=== PATIENT | female | born 1985 | race Caucasian/White ===

== ENCOUNTER 2019-06-08 11:05 | Inpatient (IN) | payer SELFPAY ==
[2014-06-28 07:22] VITALS: BMI 20.6
[2019-06-08 12:49] VITALS: BMI 25.4
--- NOTE | 2019-06-08 13:17 | HP.PCM_ITS ---
- Problem List (1) History of placenta abruption Status: Acute (2) History of recurrent miscarriages Status: Acute (3) History of stillbirth Status: Acute (4) IUGR (intrauterine growth restriction) Status: Acute History Date of Admission: 06/02/14 Final SAMMI: 06/27/19 Gestational age: 37 Weeks and 2 Days History of this : This is a 33 year-old, at 37 weeks gestational age presents for induction of labor secondary to IUGR. Patient is received care by a synthetic chemist in [facility] and has been followed with growth ultrasounds throughout the due to her complicated history of previous 22-week PPROM abruption, stillbirth, and recurrent miscarriage. Most recent ultrasound was diagnosed with IUGR in the 10th percentile. Based on her complex history is recommended to deliver at 37 weeks. Allergies No Known Allergies Allergy (Verified 06/02/14 05:35) Home Medications: Home Medications Calcium 1 tab PO DAILY 06/08/19 Ferrous Gluconate 325 mg PO TID 06/08/19 [place]-3 6 tab PO DAILY 06/08/19 Vits [Prenatabs FA ] 1 tab PO TID 06/08/19 Vitamin D3 1 tab PO DAILY 06/08/19 Vitamin E 1 tab PO DAILY 06/08/19 Smoking Status: Never smoker Alcohol: None Number of Fetus(es): 1 NST - FHR Rate Baby A Baseline: 130 Variability:: Moderate Accelerations:: 15 x 15 Decelerations:: None NST Reactive:: Yes FHR Category:: Category I Uterine Activity:: no regular History Past Pregnancies: Past Pregnancies 22-week PPROM and abruption and delivery Stillbirth 2 miscarriages Term vaginal delivery, treated with progesterone injections during . Labs: Mom's Microbiology 06/08/19 Unknown Genital vaginal Group B Streptococcus Culture - Pending Mom's Problem List Problem Status Onset Code IUGR (intrauterine growth restriction) Acute History of placenta abruption Acute Z87.59 History of stillbirth Acute Z87.59 History of recurrent miscarriages Acute N96 Mom's Labs & Results 06/08/19 06/08/19 06/08/19 13:40 13:40 13:40 WBC 9.9 RBC 3.74 L Hgb 12.3 Hct 36.1 L MCV 96.5 MCH 32.9 H MCHC 34.1 RDW Std Deviation 47.1 H RDW Coeff of Gladis 13.2 Plt Count 221 MPV 11.6 Immature Gran % (Auto) 0.600 Neut % (Auto) 76.2 H Lymph % (Auto) 15.9 L [place] % (Auto) 5.9 Eos % (Auto) 1.2 Baso % (Auto) 0.2 Absolute Neuts (auto) 7.5 Absolute Lymphs (auto) 1.57 Nucleated RBC % 0 Urine Color Urine Clarity Urine pH Ur Specific [place] Urine Protein Urine Glucose (UA) Urine Ketones Urine Occult Blood Urine Nitrite Urine Bilirubin Urine Urobilinogen Ur Leukocyte Esterase Urine RBC Urine WBC Ur Squamous Epith Cells Urine Bacteria Urine Mucus Urine Opiates Screen Urine Methadone Screen Ur Barbiturates Screen Ur Phencyclidine Scrn Ur Amphetamines Screen U Methamphetamin-MDMA U Benzodiazepines Scrn Urine Cocaine Screen U Cannabinoids Screen Ur Drug Screen Comment RPR Pending Chlam trachomat DNA PCR Hep Bs Antigen Hepatitis C Antibody HIV 1&2 Antibody N.gonorrhoeae DNA (PCR) Rubella IgG Antibody 57.6 Group B Strep DNA Specimen Comment Blood Type Antibody Screen 06/08/19 06/08/19 06/08/19 13:40 13:40 14:00 WBC RBC Hgb Hct MCV MCH MCHC RDW Std Deviation RDW Coeff of Gladis Plt Count MPV Immature Gran % (Auto) Neut % (Auto) Lymph % (Auto) [place] % (Auto) Eos % (Auto) Baso % (Auto) Absolute Neuts (auto) Absolute Lymphs (auto) Nucleated RBC % Urine Color Yellow Urine Clarity Sl. Cloudy Urine pH 7.0 Ur Specific [place] 1.010 Urine Protein Negative Urine Glucose (UA) Normal Urine Ketones Negative Urine Occult Blood Negative Urine Nitrite Negative Urine Bilirubin Negative Urine Urobilinogen Normal Ur Leukocyte Esterase 25 H Urine RBC 0 SEEN Urine WBC 0-5 SEEN Ur Squamous Epith Cells 0-5 SEEN Urine Bacteria 1+ Urine Mucus 0 SEEN Urine Opiates Screen Urine Methadone Screen Ur Barbiturates Screen Ur Phencyclidine Scrn Ur Amphetamines Screen U Methamphetamin-MDMA U Benzodiazepines Scrn Urine Cocaine Screen U Cannabinoids Screen Ur Drug Screen Comment RPR Chlam trachomat DNA PCR Hep Bs Antigen Non-Reactive Hepatitis C Antibody Non-Reactive HIV 1&2 Antibody Non-Reactive N.gonorrhoeae DNA (PCR) Rubella IgG Antibody Group B Strep DNA Specimen Comment Blood Type O POSITIVE Antibody Screen NEGATIVE 06/08/19 06/08/19 14:00 14:00 WBC RBC Hgb Hct MCV MCH MCHC RDW Std Deviation RDW Coeff of Gladis Plt Count MPV Immature Gran % (Auto) Neut % (Auto) Lymph % (Auto) [place] % (Auto) Eos % (Auto) Baso % (Auto) Absolute Neuts (auto) Absolute Lymphs (auto) Nucleated RBC % Urine Color Urine Clarity Urine pH Ur Specific [place] Urine Protein Urine Glucose (UA) Urine Ketones Urine Occult Blood Urine Nitrite Urine Bilirubin Urine Urobilinogen Ur Leukocyte Esterase Urine RBC Urine WBC Ur Squamous Epith Cells Urine Bacteria Urine Mucus Urine Opiates Screen Cancelled Urine Methadone Screen Cancelled Ur Barbiturates Screen Cancelled Ur Phencyclidine Scrn Cancelled Ur Amphetamines Screen Cancelled U Methamphetamin-MDMA Cancelled U Benzodiazepines Scrn Cancelled Urine Cocaine Screen Cancelled U Cannabinoids Screen Cancelled Ur Drug Screen Comment Cancelled RPR Chlam trachomat DNA PCR Negative Hep Bs Antigen Hepatitis C Antibody HIV 1&2 Antibody N.gonorrhoeae DNA (PCR) Negative Rubella IgG Antibody Group B Strep DNA Negative Specimen Comment Not Reportable Blood Type Antibody Screen Course Did the patient receive Yes care? Labs Blood Type: O RH: POSITIVE Rubella status Immune HbSAg Negative Date Done: 06/08/19 Chlamydia Negative Gonorrhea Negative HIV/AIDS Non-Reactive Group B Strep: Negative Other Lab Procedures/Results/ NPC labs to be drawn with admission Comments: Current Obstetrical History Gestational Diabetes No Incompetent Cervix No Infertility No IUGR Yes: confirmed IUGR Macrosomia No Hypertension/Pre-eclampsia No Placenta Previa/Abruption No: placenta chairez PTL/PROM No Uterine anomaly No Oligohydramnios No Polyhydramnios No Multiple gestation No Past Medical History Asthma No Diabetes No Hypertension No Heart disease No Mitral valve prolapse No Neurologic/Seizure disorder/ No Migraines Kidney disease No Liver disease No Varicosities No Clotting disorders/Hx of DVT No Other medical diseases No Psychiatric disorders Yes: anxiety Major trauma No Abnormal PAP smear No Sleep apnea No Mammogram in the last 2 years No Social History Marital Status: Alleged father Keshawn Hx Smoking No Smoking Status Never smoker How long have you used pt denies substances (years)? Expected Delivery Method: Spontaneous Vaginal Review of Systems Constitutional: Denies: Fever, Malaise Eyes: Denies: Blurred vision, Vision Change HEENT: Denies: Head Aches, Visual Changes Cardiovascular: Denies: Chest Pain, Palpitations Respiratory: Denies: Cough, Shortness of Breath, Wheezing Gastrointestinal: Denies: Abdominal Pain, Diarrhea, Nausea, Vomiting Genitourinary: Denies: Dysuria, Hematuria Musculoskeletal: Denies: Joint Pain, Muscle pain Skin: Denies: Lesions, Rash Neurological: Denies: Blurred vision, Focal weakness, Headaches Psychiatric: Denies: Anxiety, Depression Endocrine: Denies: Heat/ Cold Intolerance Hematologic/ Lymphatic: Denies: Easy Bruising, Easy Bleeding Physical Exam General: Alert, Cooperative, No apparent distress HEENT: Atraumatic, Normocephalic. Negative for: Thyromegaly, Lymphadenopathy Cardiovascular: Regular rate Lungs: Normal air movement Abdomen: Soft, Non Tender, Gravid Neurological: Deep Tendon Reflexes 2+/4 and Symmetrical, Neuro grossly intact. Negative for: Clonus RESERVATIONS AND TICKETING AGENT: Normal external genitalia. Negative for: Vulvar lesions Estimated gestational size: Appropriate for gestational size Presentation: Cephalic Assessment/Plan All Active Problems IUGR (intrauterine growth restriction) (Acute) History of placenta abruption (Acute) History of stillbirth (Acute) History of recurrent miscarriages (Acute) This is a 33 year-old, , at 37 weeks gestational age presents for IOL secondary to IUGR. Patient presents IOL, plan management for , pitocin/AROM Pain management: minimal intervention GBS neg Management of any complications: none I have reviewed the [facility] and made any clinically relevant updates.
[2019-06-08] MEDS: Lactated Ringers 1,000 ML 50 ML IV (13:40)
[2019-06-08 14:09] LABS: Absolute Lymphocyte Count 1.57 X10^3/uL (0.83-4.51); Absolute Neutrophil Count 7.5 X10^3/uL (2.0-7.7); Basophil# 0.02 X10^3/uL; Basophil% 0.2 % (0-1); Eosinophil# 0.12 X10^3/uL; Eosinophils% 1.2 % (0-5); Hematocrit 36.1 % (37-47); Hemoglobin 12.3 g/dL (12.0-15.0); Lymphocyte # 1.57 X10^3/ul (4.0); Lymphocyte % 15.9 % (19-41); Mean Corp Hgb Conc 34.1 g/dL (32-36); Mean Corpuscular Hgb 32.9 pg (27.0-32.0); Mean Corpuscular Volume 96.5 fL (81-99); Mean Platelet Vol. 11.6 fl (6.2-12.0); Monocyte# 0.58 X10^3/uL; Monocyte% 5.9 % (0-10); NRBC Flagged by Analyzer 0 % (0-5); Neutrophil # 7.53 X10^3/uL (2.7-7.7); Neutrophil % 76.2 % (47-70); Platelet Count 221 K/mm3 (150-450); RBC Distribution Width CV 13.2 % (11.6-14.6); RBC Distribution Width SD 47.1 fl (35.1-43.9); Red Blood Count 3.74 M/mm3 (4.2-5.4); White Blood Count 9.9 K/mm3 (4.4-11.0)
[2019-06-08] MEDS: 0.9% Normal Saline Single 100 ML IV.SOLN. IY (14:10)
[2019-06-08] MEDS: Oxytocin 30 units/NS 500 ml 30 UNITS/500 ML IV.SOLN IV (14:14)
[2019-06-08 14:34] LABS: Mucous, Urine 0 SEEN /hpf (<or=2+); Red Blood Cells-Urine 0 SEEN /hpf (0-5)
[2019-06-08 14:42] LABS: Color, Urine Yellow (Yellow); Glucose, Dipstick Normal (Normal); Ketone-Dipstick Negative (Negative); Leukocyte Esterase-Dipstick 25 /ul (Negative); Nitrite-Dipstick Negative (Negative); Occult Blood-Urine Negative /ul (Negative); Protein-Dipstick Negative (Negative); Urine Bilirubin Dipstick Negative (Negative); Urine Clarity Sl. Cloudy (Clear); Urine Urobilinogen Normal (Normal)
[2019-06-08 14:47] LABS: Squamous Epithelial Cells - UA 0-5 SEEN /hpf (5-10); White Blood Cells 0-5 SEEN /hpf (0-5)
[2019-06-08 14:49] LABS: Bacteria 1+ /hpf (None Seen)
[2019-06-08 15:01] LABS: Rubella IgG 57.6 IU/mL
[2019-06-08 15:09] LABS: Group B Strep DNA By PCR Negative (Negative); Internal Control PASS; Probe Check PASS; Specimen Processing Control PASS
[2019-06-08 15:37] LABS: HIV - WCH Non-Reactive (Nonreactive); Hepatitis B Surface Antigen Non-Reactive (Nonreactive); Hepatitis C Antibody Non-Reactive (Nonreactive)
[2019-06-08 16:18] LABS: Chlamydia Trachomatis by PCR Negative (Negative); Neisserai gonorrhoeae by PCR Negative (Negative); Probe Check PASS; Sample Adequacy Control PASS; Specimen Processing Control PASS
[2019-06-08] MEDS: fentaNYL 100 MCG/2 ML Ampul IV (19:40)
[2019-06-08] MEDS: Oxytocin 30 units/NS 500 ml 30 UNITS/500 ML IV.SOLN 334 UNITS IV (22:16)
--- NOTE | 2019-06-08 22:48 | PCM.OPRPT ---
Problem List (1) IUGR (intrauterine growth restriction) Status: Acute (2) History of placenta abruption Status: Acute (3) History of stillbirth Status: Acute (4) History of recurrent miscarriages Status: Acute Report of Operation Date of Procedure: 06/08/19 Pre-Operative Diagnosis: IOL IUGR Post-Operative Diagnosis: same Surgery/Procedure Performed:: Vaginal Delivery Maternal Presentation: Medically Indicated Induction @ 37w1d presents for IOL Method of Induction: Pitocin Amniotic Membrane Rupture Type: Artificial Amniotic Fluid Description: Clear Final SAMMI: 06/27/19 Gestational age: 37 Weeks and 2 Days Date of Procedure: 06/08/19 Pre-Operative Diagnosis: iol iugr Post-Operative Diagnosis: same Surgery/ Procedure Performed: Spontaneous Vaginal Delivery Type of Anesthesia: None Description of Procedure: Patient began pushing and delivered the head in the JIM presentation. The head was delivered atraumatically. The anterior and posterior shoulders delivered without complication followed by the rest of the infant and the was placed on the maternal abdomen. Delayed cord clamping was employed for approximately 60 seconds. Cord was clamped and cut and gentle traction was applied to the cord and the placenta delivered spontaneously immediately following it was noted to be intact with three-vessel cord. The perineum and vagina were inspected and noted to have no laceration. EBL was 300 cc. Patient and infant tolerated delivery well. Presentation: JIM Placental Delivery Description: Spontaneous Placenta Disposition: [facility] Cord Vessel Description: 3 Vessels Cord Entanglement: None Estimated Blood Loss: 300 Infant A gender: Female Episiotomy Description: None Laceration: None Medications given after delivery: IV Pitocin Complications: None Multi Select Codes - Urinary/Genital Urinary/Genital CPT Codes: 50834 Vaginal Delivery+ Care([facility])
[2019-06-08] MEDS: Methylergonovine 0.2 MG/ML Ampul IM (23:04)
--- NOTE | 2019-06-09 01:11 | NURSING ---
this RN received report. this RN to assume care of pt at this time.
[2019-06-09] MEDS: 0.9% Saline Lock 10 ML Syringe IV (01:12)
[2019-06-09 01:13] VITALS: BP 112/71; PULSE 83; RESP 16; TEMP 36.8
[2019-06-09 04:26] VITALS: BP 112/69; PULSE 73; RESP 16; TEMP 37.7
--- NOTE | 2019-06-09 06:59 | DCINST_ITS ---
Discharge Diet: No Restrictions Discharge Activity: Return to Normal Activity, May not drive while taking narcotic pain medications., May Shower May resume sexual activity in: 4-6 weeks Call your doctor if your incision/area has: Continuous Slow Oozing, Sudden Increased Bleeding, Increased Pain/ Swelling, Increased Redness, Foul Smelling Discharge Additional Instructions: If you experience any of the following, contact your healthcare provider. * Bleeding that soaks a pad every hour for 2 hours * Fever 100.4 or higher * Unrelieved incision or abdominal pain * Swelling, redness, discharge or bleeding from your incision or episiotomy site * Your incision begins to separate * Problems urinating (including inability to urinate or burning while urinating). * Visual changes * Severe headache * Flu-like symptoms * Pain or redness in one of both of your breasts * Pain, warmth, tenderness or swelling in your legs, especially the calf area * Frequent nausea and vomiting * Symptoms of depression or anxiety If you experience any of the following, call 911 or go to the nearest Emergency Room. * Chest pain * Problems breathing * Seizure activity * Partial or complete paralysis of a body part, slurred speech, weakness or drooping of the face, or a sudden inability to walk or hold your balance Allergies/Adverse Reactions: Allergies No Known Allergies Allergy (Verified 06/02/14 05:35) Medications to take at Discharge Calcium 1 tab PO DAILY 06/08/19 Ferrous Gluconate 325 mg PO TID 06/08/19 [place]-3 6 tab PO DAILY 06/08/19 Vits [Prenatabs FA ] 1 tab PO TID 06/08/19 Vitamin D3 1 tab PO DAILY 06/08/19 Vitamin E 1 tab PO DAILY 06/08/19 Please Follow Up With: Faina Beckwith MD - [phone] When: Call to make an appointment with your doctor in 6 weeks. If you had elevated Blood pressure or 4th degree laceration you will need to be seen in 2 weeks. Primary Care Physician: Care Physician,No Primary [Primary Care Provider] - Test Results: Test results from this visit will be discussed in further detail at your follow- up appointment, if applicable.
--- NOTE | 2019-06-09 08:47 | PN.OBGYN_ITS ---
Patient Problems: Active and Suspected Problems IUGR (intrauterine growth restriction) (Acute) History of placenta abruption (Acute) History of stillbirth (Acute) History of recurrent miscarriages (Acute) Subjective: Doing well, no complaints.Pain controlled. Denies CP, SOB, N,V. Ambulating well, tolerating po. Lochia moderate, going well. - Physical Exam Vitals/I&O's: Vital Signs Temp Pulse Resp BP 99.8 F H 73 16 112/69 06/09/19 04:26 06/09/19 04:26 06/09/19 04:26 06/09/19 04:26 Oxygen Delivery Method Room Air Weight: 139 lb 6.4 oz Body Mass Index (BMI) 25.4 Intake and Output for Last 24 Hours 06/07/19 06/08/19 06/09/19 23:59 23:59 23:59 Intake Total 898.73 / 898.73 327.43 / 327.43 Output Total 400 / 400 1100 / 1100 Balance 498.73 / 498.73 -772.57 / -772.57 General: Oriented x3 Abdomen: Soft, Non Tender, Non-Distended, - - FF below U Laboratory Results 06/08/19 13:40: WBC 9.9, RBC 3.74 L, Hgb 12.3, Hct 36.1 L, MCV 96.5, MCH 32.9 H, MCHC 34.1, RDW Std Deviation 47.1 H, RDW Coeff of Gladis 13.2, Plt Count 221, MPV 11.6, Immature Gran % (Auto) 0.600, Neut % (Auto) 76.2 H, Lymph % (Auto) 15.9 L, [place] % (Auto) 5.9, Eos % (Auto) 1.2, Baso % (Auto) 0.2, Absolute Neuts (auto) 7.5, Absolute Lymphs (auto) 1.57, Nucleated RBC % 0 06/08/19 13:40: Rubella IgG Antibody 57.6 06/08/19 13:40: RPR Pending 06/08/19 13:40: Blood Type O POSITIVE, Antibody Screen NEGATIVE 06/08/19 13:40: Hep Bs Antigen Non-Reactive, Hepatitis C Antibody Non-Reactive, HIV 1&2 Antibody Non-Reactive 06/08/19 14:00: Urine Color Yellow, Urine Clarity Sl. Cloudy, Urine pH 7.0, Ur Specific [place] 1.010, Urine Protein Negative, Urine Glucose (UA) Normal, Urine Ketones Negative, Urine Occult Blood Negative, Urine Nitrite Negative, Urine Bilirubin Negative, Urine Urobilinogen Normal, Ur Leukocyte Esterase 25 H, Urine RBC 0 SEEN, Urine WBC 0-5 SEEN, Ur Squamous Epith Cells 0-5 SEEN, Urine Bacteria 1+, Urine Mucus 0 SEEN 06/08/19 14:00: Chlam trachomat DNA PCR Negative, N.gonorrhoeae DNA (PCR) Negative, Group B Strep DNA Negative, Specimen Comment Not Reportable 06/08/19 14:00: Urine Opiates Screen Cancelled, Urine Methadone Screen Cancelled, Ur Barbiturates Screen Cancelled, Ur Phencyclidine Scrn Cancelled, Ur Amphetamines Screen Cancelled, U Methamphetamin-MDMA Cancelled, U Benzodiazepines Scrn Cancelled, Urine Cocaine Screen Cancelled, U Cannabinoids Screen Cancelled, Ur Drug Screen Comment Cancelled Current Medications Acetaminophen (Tylenol) 1,000 mg PO Q8H PRN PRN PRN Reason: Pain Score 1-3/10 Bisacodyl (Dulcolax) 10 mg RECTAL UD PRN PRN Reason: If no BM Dibucaine (Dibucaine) 1 applic TOPICAL TID PRN PRN; Protocol PRN Reason: Discomfort Hydrocortisone (Hytone) 1 applic TOPICAL TID PRN PRN; Protocol PRN Reason: Discomfort Methylergonovine Maleate (Methergine) 0.2 mg IM X1 PRN PRN Reason: Excess bleeding/uterine atony Last Admin: 06/08/19 23:04 Dose: 0.2 mg Documented by: Naproxen (Naprosyn) 500 mg PO Q8H PRN PRN PRN Reason: Pain Score 1-3/10 Ondansetron HCl (Zofran) 4 mg IV Q4H PRN PRN PRN Reason: Nausea Oxycodone HCl (Oxyir) 5 - 10 mg PO Q4H PRN PRN PRN Reason: Pain Score 4-10/10 Senna/Docusate Sodium (Senokot-S, Marjorie-Colace) 1 - 2 tablet PO DAILY PRN PRN PRN Reason: Constipation Simethicone (Mylicon) 80 mg PO PCHS PRN PRN Reason: Indigestion/Stomach pain Sodium Chloride () 5 - 15 ml IV UD PRN PRN Reason: SALINE FLUSH Last Admin: 06/09/19 01:12 Dose: 10 ml Documented by: Medical Necessity - Tobacco Use Smoking Status: Never smoker Assessment/Plan All Active Problems IUGR (intrauterine growth restriction) (Acute) History of placenta abruption (Acute) History of stillbirth (Acute) History of recurrent miscarriages (Acute) s/p PPD # 1 1. routine post delivery care 2. breast feeding- support given 3. rh positive 4. rubella immune
[2019-06-09 09:16] VITALS: BP 106/62; PULSE 85; RESP 16; TEMP 36.8
[2019-06-09 13:22] VITALS: BP 101/58; PULSE 77; RESP 16; TEMP 36.8
[2019-06-09 15:45] VITALS: BP 100/58; PULSE 74; RESP 16; TEMP 36.6
[2019-06-09 20:12] VITALS: BP 109/71; PULSE 87; RESP 16; TEMP 36.6; O2SAT 98
[2019-06-10 02:00] VITALS: BP 105/55; PULSE 70; RESP 16; TEMP 36.7
[2019-06-10] MEDS: Senna/Docusate Sodium 1 Tablet PO (05:04)
[2019-06-10 08:30] VITALS: BP 103/67; PULSE 64; RESP 16; TEMP 36.4
--- NOTE | 2019-06-10 09:35 | PCM.PN.OB ---
Patient Problems: Active and Suspected Problems IUGR (intrauterine growth restriction) (Acute) History of placenta abruption (Acute) History of stillbirth (Acute) History of recurrent miscarriages (Acute) Subjective: Doing well, no complaints.Pain controlled. Denies CP, SOB, N,V. Ambulating well, tolerating po. Lochia moderate, going well. - Physical Exam Vitals/I&O's: Vital Signs Temp Pulse Resp BP Pulse Ox 97.6 F L 64 16 103/67 98 06/10/19 08:30 06/10/19 08:30 06/10/19 08:30 06/10/19 08:30 06/09/19 20:12 Oxygen Delivery Method Room Air Weight: 139 lb 6.4 oz Body Mass Index (BMI) 25.4 Intake and Output for Last 24 Hours 06/08/19 06/09/19 06/10/19 23:59 23:59 23:59 Intake Total 898.73 / 898.73 327.43 / 327.43 Output Total 400 / 400 1100 / 1100 Balance 498.73 / 498.73 -772.57 / -772.57 General: Alert, Oriented x3 Abdomen: Soft, Non Tender - FF below U Current Medications Acetaminophen (Tylenol) 1,000 mg PO Q8H PRN PRN PRN Reason: Pain Score 1-3/10 Bisacodyl (Dulcolax) 10 mg RECTAL UD PRN PRN Reason: If no BM Dibucaine (Dibucaine) 1 applic TOPICAL TID PRN PRN; Protocol PRN Reason: Discomfort Hydrocortisone (Hytone) 1 applic TOPICAL TID PRN PRN; Protocol PRN Reason: Discomfort Methylergonovine Maleate (Methergine) 0.2 mg IM X1 PRN PRN Reason: Excess bleeding/uterine atony Last Admin: 06/08/19 23:04 Dose: 0.2 mg Documented by: Naproxen (Naprosyn) 500 mg PO Q8H PRN PRN PRN Reason: Pain Score 1-3/10 Ondansetron HCl (Zofran) 4 mg IV Q4H PRN PRN PRN Reason: Nausea Oxycodone HCl (Oxyir) 5 - 10 mg PO Q4H PRN PRN PRN Reason: Pain Score 4-10/10 Senna/Docusate Sodium (Senokot-S, Marjorie-Colace) 1 - 2 tablet PO DAILY PRN PRN PRN Reason: Constipation Last Admin: 06/10/19 05:04 Dose: 1 tablet Documented by: Simethicone (Mylicon) 80 mg PO PCHS PRN PRN Reason: Indigestion/Stomach pain Sodium Chloride () 5 - 15 ml IV UD PRN PRN Reason: SALINE FLUSH Last Admin: 06/09/19 01:12 Dose: 10 ml Documented by: Medical Necessity - Tobacco Use Smoking Status: Never smoker Assessment/Plan All Active Problems IUGR (intrauterine growth restriction) (Acute) History of placenta abruption (Acute) History of stillbirth (Acute) History of recurrent miscarriages (Acute) s/p PPD # 2 1. routine post delivery care 2. breast feeding- support given 3. rh positive 4. rubella immune 5. discharge home vs hotel dependent on jaundice status
--- NOTE | 2019-06-10 09:36 | DCINST_ITS ---
Discharge Diet: No Restrictions Discharge Activity: Return to Normal Activity, May not drive while taking narcotic pain medications., May Shower May resume sexual activity in: 4-6 weeks Call your doctor if your incision/area has: Continuous Slow Oozing, Sudden Increased Bleeding, Increased Pain/ Swelling, Increased Redness, Foul Smelling Discharge Additional Instructions: If you experience any of the following, contact your healthcare provider. * Bleeding that soaks a pad every hour for 2 hours * Fever 100.4 or higher * Unrelieved incision or abdominal pain * Swelling, redness, discharge or bleeding from your incision or episiotomy site * Your incision begins to separate * Problems urinating (including inability to urinate or burning while urinating). * Visual changes * Severe headache * Flu-like symptoms * Pain or redness in one of both of your breasts * Pain, warmth, tenderness or swelling in your legs, especially the calf area * Frequent nausea and vomiting * Symptoms of depression or anxiety If you experience any of the following, call 911 or go to the nearest Emergency Room. * Chest pain * Problems breathing * Seizure activity * Partial or complete paralysis of a body part, slurred speech, weakness or drooping of the face, or a sudden inability to walk or hold your balance Allergies/Adverse Reactions: Allergies No Known Allergies Allergy (Verified 06/02/14 05:35) Medications to take at Discharge Calcium 1 tab PO DAILY 06/08/19 Ferrous Gluconate 325 mg PO TID 06/08/19 [place]-3 6 tab PO DAILY 06/08/19 Vits [Prenatabs FA ] 1 tab PO TID 06/08/19 Vitamin D3 1 tab PO DAILY 06/08/19 Vitamin E 1 tab PO DAILY 06/08/19 Primary Care Physician: Care Physician,No Primary [Primary Care Provider] - Test Results: Test results from this visit will be discussed in further detail at your follow- up appointment, if applicable.
--- NOTE | 2019-06-10 09:36 | PCM.DCVAG ---
Discharge Diet: No Restrictions Discharge Activity: Return to Normal Activity, May not drive while taking narcotic pain medications., May Shower May resume sexual activity in: 4-6 weeks Call your doctor if your incision/area has: Continuous Slow Oozing, Sudden Increased Bleeding, Increased Pain/ Swelling, Increased Redness, Foul Smelling Discharge Additional Instructions: If you experience any of the following, contact your healthcare provider. Bleeding that soaks a pad every hour for 2 hours Fever 100.4 or higher Unrelieved incision or abdominal pain Swelling, redness, discharge or bleeding from your incision or episiotomy site Your incision begins to separate Problems urinating (including inability to urinate or burning while urinating). Visual changes Severe headache Flu-like symptoms Pain or redness in one of both of your breasts Pain, warmth, tenderness or swelling in your legs, especially the calf area Frequent nausea and vomiting Symptoms of depression or anxiety If you experience any of the following, call 911 or go to the nearest Emergency Room. Chest pain Problems breathing Seizure activity Partial or complete paralysis of a body part, slurred speech, weakness or drooping of the face, or a sudden inability to walk or hold your balance Allergies/Adverse Reactions: Allergies No Known Allergies Allergy (Verified 06/02/14 05:35) Medications to take at Discharge Calcium 1 tab PO DAILY 06/08/19 Ferrous Gluconate 325 mg PO TID 06/08/19 [place]-3 6 tab PO DAILY 06/08/19 Vits [Prenatabs FA ] 1 tab PO TID 06/08/19 Vitamin D3 1 tab PO DAILY 06/08/19 Vitamin E 1 tab PO DAILY 06/08/19 Primary Care Physician: Care Physician,No Primary [Primary Care Provider] - Test Results: Test results from this visit will be discussed in further detail at your follow-up appointment, if applicable.
[2019-06-10 13:44] VITALS: BP 97/59
[2019-06-11 03:50] LABS: Rapid Plasmin Reagin (RPR) NONREACTIVE (NONREACTIVE)
== END 2019-06-10 14:25 | disposition home or self-care (01) | DRG 807 ==
PROVIDERS: Admitting Provider Obstetrics & Gynecology; Visit Provider Obstetrics & Gynecology
DX: O36.5930 Maternal care for other known or suspected poor fetal growth, third trimester, not applicable or unspecified (principal); Z37.0 Single live birth; Z3A.37 37 weeks gestation of pregnancy; O26.23 Pregnancy care for patient with recurrent pregnancy loss, third trimester
CPT/HCPCS: 59025; 59050; 81001; 85025; 86592; 86703; 86762; 86803; 86850; 86900; 86901; 87081; 87340; 87491; 87591; 87653; 99218; J7120; A4216; G0378